=== PATIENT | female | born 1980 | race Hispanic/Latino ===

== ENCOUNTER 2018-02-17 20:57 | Emergency (ER) | payer SELFPAY ==
[2018-02-17 21:29] LABS: Bilirubin Negative (Negative); Blood, Urine Trace (Negative); Clarity CLEAR (Clear); Glucose, Urine (Dipstick) Negative (Negative); Leukocyte Small (Negative); Nitrite Negative (Negative); Protein, Urine (Dipstick) Negative (Neg-Trace); Urobilinogen 0.2 mg/dL (0.2-1.0); pH, Urine 7.5 (5.0-9.0)
[2018-02-17 21:30] LABS: Bacteria/HPF None Seen HPF (None Seen); Hyaline Casts/LPF 0-3 HYALINE CAST LPF (0-3 Hyaline); Pathc Cast-AUWi Flag 0.29 (0-2.49); Squamous Epithelial 0-3 HPF (0-3)
[2018-02-17 22:08] LABS: Pregnancy Test - Urine (BHCG) Negative (Negative); Pregu Control Background? CLEAR/WHITE (CLR/WHITE); Pregu Control Bar Appear? YES (CONTROL BAR)
[2018-02-17] MEDS ORDERED: Acetaminophen 325 MG TAB ONE (23:05)
[2018-02-17] MEDS ORDERED: Ketorolac Tromethamine 30 MG/ML VIAL ONE (23:05)
--- NOTE | 2018-02-17 23:43 | ULT ---
RENAL SONOGRAM: 02/17/2018 HISTORY: Left CVA tenderness. FINDINGS: The kidneys demonstrate a normal sonographic appearance bilaterally, without evidence of a renal mass , renal calculus, or hydronephrosis. There is mild fullness in the region of the right renal pelvis, although there is no overt hydronephrosis appreciated. The right kidney measures 11.6 cm x 5.6 cm, with the left kidney measuring 11.3 cm x 4.9 cm. The urinary bladder has a normal sonographic appearance. Color-flow evaluation demonstrates flow fro m each ureteral jet. IMPRESSION: Mild fullness of the right renal pelvis without overt hydronephrosis. The kidneys otherwise have a n ormal sonographic appearance bilaterally. POS: BRIAN
== END 2018-02-18 00:05 | disposition home or self-care (01) ==
LOC: ERS 20:57
DX: N30.91 Cystitis, unspecified with hematuria (principal); E78.5 Hyperlipidemia, unspecified
CPT/HCPCS: 76770; 81003; 81015; 81025; 87077; 87086; 87186; 96372; J1885